=== PATIENT | male | born 1985 | race Caucasian/White ===

== ENCOUNTER 2021-10-24 09:10 | Emergency (ER) | payer OTHER ==
--- NOTE | 2021-10-24 09:40 | XRAY Report ---
PROCEDURE: Chest 1 View X-Ray INDICATIONS: Chest pain TECHNIQUE: One view of the chest was acquired. COMPARISON: None. FINDINGS: Surgical changes and devices: None. Lungs and pleura: No pleural effusions or pneumothorax. Lungs are clear. Mediastinum: Mediastinal contours appear normal. Heart size is normal. Bones and chest wall: No suspicious bony lesions. Overlying soft tissues appear unremarkable. No acute cardiopulmonary process demonstrated radiographically. Reviewed by: Conrad Sarkar MD on 10/24/2021 9:39 AM PDT Approved by: Conrad Sarkar MD on 10/24/2021 9:39 AM PDT Station ID: [id number]
--- NOTE | 2021-10-24 09:41 | ED Physician Documentation ---
PD HPI CHEST PAIN - Stated complaint Stated Complaint: CHEST DISCOMFORT - Chief complaint Chief Complaint: Cardiac - History obtained from History obtained from: Patient - History of Present Illness Timing - onset: Last night (noted feeling of heart going fast and forceully last night/this AM (noted prior to sleeping at 3 am, and still present 6 am when awoke).) Timing - onset during: Light activity (he is here with /child on getaway for 4-5 days. Leaving today so he celebrated more last evening with 4 drinks. Did feel inebriated since does not drink daily even. Had been drinking less water/fluids otherwise too.) Timing - duration: Hours (9-10) Timing - details: Abrupt onset, Still present Quality: Tightness Location: Substernal, Left chest Radiation: Left upper extremity. No: Neck, Back Improved by: No: Rest Associated symptoms: Nausea, Palpitations. No: Shortness of air Similar symptoms before: Has not had sx before Recently seen: Not recently seen Review of Systems Constitutional: denies: Fever, Chills Nose: denies: Rhinorrhea / runny nose, Congestion Throat: denies: Sore throat Respiratory: denies: Cough GI: reports: Nausea. denies: Abdominal Pain, Vomiting, Diarrhea Musculoskeletal: denies: Neck pain, Back pain Neurologic: denies: Focal weakness, Altered mental status, Headache, Head injury PD PAST MEDICAL HISTORY - Past Medical History Cardiovascular: None Respiratory: None Neuro: None Endocrine/Autoimmune: None - Present Medications Home Medications: Ambulatory Orders Medication Instructions Recorded Confirmed No Known Home Medications 10/24/21 10/24/21 - Allergies Allergies/Adverse Reactions: Allergies Allergy/AdvReac Type Severity Reaction Status Date / Time No Known Drug Allergies Allergy Verified 10/24/21 09:20 - Living Situation Living Situation: reports: With spouse/s.o. Living Arrangement: reports: At home - Social History Does the pt smoke?: No Does the pt drink ETOH?: Yes ETOH Use: Other (couple drinks per week. ) Does the pt have substance abuse?: No - Family History Family history: denies: CAD PD ED PE NORMAL - Vitals Vital signs reviewed: Yes - General General: Alert and oriented X 3, No acute distress, Well developed/nourished - HEENT HEENT: Moist mucous membranes, Pharynx benign - Neck Neck: Supple, no meningeal sign, No adenopathy, Thyroid normal - Cardiac Cardiac: No murmur, No rub. No: RRR (irregular and fast) - Respiratory Respiratory: Clear bilaterally - Abdomen Abdomen: Soft, Non tender - Derm Derm: Normal color, Warm and dry - Extremities Extremities: No edema, No calf tenderness / cord - Neuro Neuro: Alert and oriented X 3, No motor deficit, No sensory deficit, Normal speech Results - Vitals Vitals: Vital Signs - 24 hr 10/24/21 10/24/21 10/24/21 09:20 10:19 11:00 Temperature 37.2 C Heart Rate 128 H 176 H 105 H Respiratory 18 18 21 Rate Blood Pressure 98/66 124/86 H 111/74 O2 Saturation 97 98 96 10/24/21 10/24/21 10/24/21 11:28 11:40 12:41 Temperature Heart Rate 112 H 101 H 128 H Respiratory 17 15 17 Rate Blood Pressure 114/75 105/76 120/73 O2 Saturation 95 97 97 10/24/21 10/24/21 10/24/21 12:51 13:00 13:05 Temperature Heart Rate 84 91 120 H Respiratory 19 16 18 Rate Blood Pressure 115/85 H 114/85 H O2 Saturation 94 96 10/24/21 13:10 Temperature Heart Rate 85 Respiratory 16 Rate Blood Pressure 123/100 H O2 Saturation 95 Oxygen O2 Source Room air - EKG (time done) 09:26 Rate: Rate (enter#) (165) Rhythm: Atrial fibrillation [place]: Normal QRS: Normal Ischemia: Normal ST segments, ST elevation c/w repol. No: ST elevation c/w ischemia, Q waves - Labs Labs: Laboratory Tests 10/24/21 10/24/21 10/24/21 09:39 09:39 09:39 WBC 9.3 RBC 6.15 H Hgb 18.3 H Hct 55.0 H MCV 89.4 MCH 29.8 MCHC 33.3 RDW 13.9 Plt Count 261 MPV 9.7 Neut # (Auto) 6.5 Lymph # (Auto) 2.0 [place] # (Auto) 0.6 Eos # (Auto) 0.1 Baso # (Auto) 0.1 Absolute Nucleated RBC 0.00 Nucleated RBC % 0.0 Sodium 141 Potassium 4.6 Chloride 103 Carbon Dioxide 29 Anion Gap 9.0 BUN 17 Creatinine 1.0 Estimated GFR (MDRD) 86 L Glucose 119 H Calcium 9.5 Total Bilirubin 1.2 H AST 22 ALT 39 Alkaline Phosphatase 58 Troponin I High Sens 3.9 Total Protein 7.9 Albumin 4.8 Globulin 3.1 Albumin/Globulin Ratio 1.5 Lipase 25 - Rads (name of study) chest xray Radiology: Prelim report reviewed (no acute process), See rad report Procedures - Cardioversion 1 Indication: Tachyarrhythmia (atrial fib) Risks, benefits, alternatives explained to: Pt Prep: IV, O2, nuclear monitoring technician, Pulse ox CS via: Pads, AP approach Sync: Biphasic, 100j Post cardioversion rhythm: NSR Performed by: ED MD MEDICAL DECISION MAKING - ED course Complexity details: considered differential (new onset rapid atrial fib that slows moderately with doses Diltiazem. Discussed with patient the treatment options and shared decision is for cardioversion. Consent obtained and questions answered. ), d/w patient Departure - Departure Disposition: 01 Home, Self Care Clinical Impression: Atrial fibrillation with rapid ventricular response Condition: Stable Record reviewed to determine appropriate education?: Yes Instructions: ED Afib, ED Cardioversion Electrical Comments: Stay well-hydrated. Continue usual diet and intake. Avoid alcohol. Follow-up with your primary care at home. They may want to do some testing of the heart such as an echocardiogram to ensure there is no subtle valve problems or such. Otherwise this can be isolated event related to hydration and irritants such as the few drinks you had. Your basic blood count and electrolytes and blood sugar are good so those do not seem to be factoring in. A printed a copy of your 2 EKGs so you can show them to your primary care for your files. Return if recurrent episodes not ceased on the its own after an hour or so. Discharge Date/Time: 10/24/21 13:29
[2021-10-24 09:49] LABS: BASOPHILS # (AUTO) 0.1 10^3/uL (0.0-0.1); BASOPHILS % (AUTO) 0.6 %; EOSINOPHILS # (AUTO) 0.1 10^3/uL (0.0-0.7); EOSINOPHILS % (AUTO) 0.6 %; HGB - HEMOGLOBIN 18.3 g/dL (14.0-18.0); MEAN CORPUSCULAR HEMOGLOBIN 29.8 pg (27.0-31.0); MEAN CORPUSCULAR HGB CONC 33.3 g/dL (32.0-36.0); MEAN CORPUSCULAR VOLUME 89.4 fL (80.0-94.0); MEAN PLATELET VOLUME 9.7 fL (7.4-11.4); MONOCYTES # (AUTO) 0.6 10^3/uL (0.0-1.0); MONOCYTES % (AUTO) 5.9 %; NEUTROPHILS # (AUTO) 6.5 10^3/uL (1.5-6.6); NEUTROPHILS % (AUTO) 70.7 %; PLT - PLATELET COUNT 261 10^3/uL (130-450); RED BLOOD COUNT 6.15 10^6/uL (4.70-6.10); RED CELL DISTRIBUTION WIDTH 13.9 % (12.0-15.0); WHITE BLOOD COUNT 9.3 x10^3/uL (4.8-10.8)
[2021-10-24 10:02] LABS: ALBUMIN 4.8 g/dL (3.2-5.5); ALBUMIN/GLOBULIN RATIO 1.5 (1.0-2.2); BILIRUBIN,TOTAL 1.2 mg/dL (0.2-1.0); CALCIUM 9.5 mg/dL (8.5-10.3); POTASSIUM 4.6 mmol/L (3.5-5.0); TOTAL PROTEIN 7.9 g/dL (6.7-8.2)
[2021-10-24] MEDS ORDERED: diltiaZEM INJ 5 MG/ML VIAL IVP STA ×2 (10:32→11:15)
[2021-10-24] MEDS ORDERED: PROPOFOL 200 MG/20 ML VIAL IVP STA (12:14)
[2021-10-24] MEDS ORDERED: SODIUM CHLORIDE 0.9% 1,000 ML IV STA (12:31)
[2021-10-24 13:19] VITALS: BP 123/100
== END 2021-10-24 13:29 | disposition home or self-care (01) ==
LOC: ED 09:10
DX: I48.20 Chronic atrial fibrillation, unspecified (principal)
CPT/HCPCS: 36415; 80053; 83690; 84484; 85025; 92960; 93005; 94770; 99284